=== PATIENT | male | born 1995 ===

== ENCOUNTER 2022-06-16 09:07 | Emergency (ER) | payer OTHER, BC ==
[~2022-06-16] VITALS: Ht 172.7 cm; Wt 122.7 kg
[2022-06-16 09:27] VITALS: BP 137/85; TEMP 97.9
[2022-06-16 10:11] VITALS: PULSE 71
== END 2022-06-16 10:13 | disposition home or self-care (01) ==
LOC: COL.ER 09:07
DX: H60.92 Unspecified otitis externa, left ear (principal)